=== PATIENT | female | born 1995 | race Caucasian/White ===

== ENCOUNTER → 2020-07-06 | Outpatient (CLI) | payer BC ==
[~2020-07-06] MED LIST: BUPR300T92 PO; CELE10TA PO
== END ==
LOC: M LABSMTC 10:16
PROVIDERS: ATTEND Anesthesiology
DX: Z01.812 Encounter for preprocedural laboratory examination (principal); Z20.822 Contact with and (suspected) exposure to COVID-19

== ENCOUNTER 2020-07-11 12:06 | Day surgery (SDC) | payer BC ==
[~2020-07-11] VITALS: Ht 165.1 cm; Wt 59.8 kg
[~2020-07-11 12:06] MED LIST changes: +LIDOCAINE 1% MDV 20ML VIAL SQ PRN; +LR 1,000 ML IV ONE; +dexameTHASONE 20MG/5ML VIAL (J1100 PER 1MG) IV ONE
[2020-07-11] MEDS ORDERED: OXYMETAZOLINE 0.05% NASAL SPRAY (AFRIN) As Ordered ONE (14:30)
[2020-07-11] MEDS ORDERED: dexameTHASONE 4 MG/ML 1ML VIAL (J1100 PER 1MG) As Ordered ONE (14:34)
[2020-07-11] MEDS ORDERED: LIDOCAINE 2% 100MG/5ML SDV (FOR ANES.) As Ordered ONE (14:34)
[2020-07-11] MEDS ORDERED: ROCURONIUM BROMIDE 50 MG/5 ML VIAL As Ordered ONE (14:34)
[2020-07-11] MEDS ORDERED: ONDANSETRON 4MG/2ML VIAL As Ordered ONE (14:34)
[2020-07-11] MEDS ORDERED: propofoL 200 MG/20 ML VIAL As Ordered ONE (14:34)
[2020-07-11] MEDS ORDERED: MIDAZOLAM INJ 2MG/2ML VIAL (J2250 PER 1MG) As Ordered ONE (14:37)
[2020-07-11] MEDS ORDERED: fentaNYL 100 MCG/2 ML INJECTION (J3010) As Ordered ONE ×2 (14:38→15:58)
[2020-07-11] MEDS ORDERED: ACETAMINOPHEN 1000MG 100ML IV BTL (OFIRMEV) (J0131 PER 10MG) As Ordered ONE (15:17)
[2020-07-11] MEDS ORDERED: SUGAMMADEX SODIUM 500 MG/5 ML VIAL (BRIDION) As Ordered ONE (15:17)
[2020-07-11] MEDS ORDERED: HYDROmorphone HCL 2 MG/ML 1ML VIAL (J1170) As Ordered ONE (15:18)
[2020-07-11] MEDS: fentaNYL 100 MCG/2 ML INJECTION (J3010) IV PRN ×2 (15:58→16:03)
[2020-07-11] MEDS ORDERED: ONDANSETRON 4MG/2ML VIAL IV PRN (16:35)
[2020-07-11] MEDS ORDERED: LR 1,000 ML IV SCH (16:35)
[2020-07-11] MEDS ORDERED: oxyCODONE 5MG TAB PO PRN (16:35)
[2020-07-11 17:25] VITALS: BP 127/74
--- NOTE | 2020-07-16 12:46 | RO ---
OPERATIVE NOTE DATE OF OPERATION: 07/11/2020 PREOPERATIVE DIAGNOSIS: Chronic tonsillitis. POSTOPERATIVE DIAGNOSIS: Chronic tonsillitis. PROCEDURE PERFORMED: Tonsillectomy. SURGEON: Gil Flaherty MD. THERAPEUTIC CONSULTANT: ANESTHESIA: General. CLINICAL PREAMBLE: This 24-year-old woman presented to the office with history of chronic tonsillitis. Physical examination revealed cryptic tonsils. Management options, including surgery listed above, have been discussed. The patient understood and consented to the procedure. DESCRIPTION OF PROCEDURE: Patient was identified in preoperative holding and brought to the operating room in stable condition. In supine position on the operating table, patient received general anesthesia followed by orotracheal intubation without incident. Patient was prepped and draped in the usual fashion for the procedure. The Neel-Nando mouth gag was inserted and suspended. The right tonsil was medialized using curved Allis forceps. Mucosal incision was made over the superior pole of the right tonsil using the Coblator wand set at 7 for Coblation. The tonsillar capsule was identified, and dissection was carried out along the plane to excise the right tonsil. The left tonsil was then similarly dissected out. At the end of the procedure, both tonsil beds were free of bleeding. Estimated blood loss was less than 10 mL. No complication was encountered. Sponge and instrument counts were correct at the end of the procedure. General anesthesia was reversed, and the patient was extubated and brought to the recovery room in stable condition.
== END 2020-07-11 17:25 | disposition home or self-care (01) ==
LOC: M SDC 12:06
PROVIDERS: ATTEND Otolaryngology
DX: J35.01 Chronic tonsillitis (principal); I45.6 Pre-excitation syndrome; T88.59XD Other complications of anesthesia, subsequent encounter; Z86.14 Personal history of Methicillin resistant Staphylococcus aureus infection; Z88.9 Allergy status to unspecified drugs, medicaments and biological substances; Z79.899 Other long term (current) drug therapy
CPT/HCPCS: 42826; 81025; 88302; J0131; J1100; J1170; J2250; J2405; J3010

== ENCOUNTER → 2020-09-10 | Outpatient (REF) | payer BC ==
[~2020-09-10] MED LIST changes: -LIDOCAINE 1% MDV 20ML VIAL SQ PRN; -LR 1,000 ML IV ONE; -dexameTHASONE 20MG/5ML VIAL (J1100 PER 1MG) IV ONE
== END ==
LOC: M PLALAB 14:14
PROVIDERS: ATTEND Advanced Practice Midwife
DX: Z34.81 Encounter for supervision of other normal pregnancy, first trimester (principal)

== ENCOUNTER → 2020-09-25 | Outpatient (CLI) | payer BC | LOC: M LABSMTC 13:40 | PROVIDERS: ATTEND Anesthesiology | DX: Z01.818 Encounter for other preprocedural examination (principal); Z11.52 Encounter for screening for COVID-19 ==

== ENCOUNTER 2020-09-26 10:07 | Day surgery (SDC) | payer BC ==
[~2020-09-26] VITALS: Ht 165.1 cm; Wt 62.1 kg
[~2020-09-26 10:07] MED LIST changes: +DOXYCYCLINE HYCLATE 100 MG in D5W MINI-BAG PLUS 100 ML IV ONE; +LR 1,000 ML IV SCH
[2020-09-26] MEDS ORDERED: KETOROLAC 60MG 2ML VIAL As Ordered ONE (10:20)
[2020-09-26 10:40] LABS: HEMOGLOBIN 13.4 g/dl (12.0-15.5); MEAN CORPUSCULAR HEMOGLOBIN 30.1 pg (27.0-33.0); MEAN CORPUSCULAR HGB CONC 33.5 g/dl (32.0-36.5); MEAN CORPUSCULAR VOLUME 89.9 fl (80.0-96.0); PLATELET COUNT, AUTOMATED 267 10^3/uL (150-450); RED BLOOD COUNT 4.45 10^6/uL (4.00-5.40); WHITE BLOOD COUNT 9.7 10^3/uL (4.0-10.0)
[2020-09-26] MEDS ORDERED: ONDANSETRON 4MG/2ML VIAL As Ordered ONE (10:49)
[2020-09-26] MEDS ORDERED: MIDAZOLAM INJ 2MG/2ML VIAL (J2250 PER 1MG) As Ordered ONE (10:49)
[2020-09-26] MEDS ORDERED: dexameTHASONE 4 MG/ML 1ML VIAL (J1100 PER 1MG) As Ordered ONE (10:49)
[2020-09-26] MEDS ORDERED: fentaNYL 100 MCG/2 ML INJECTION (J3010) As Ordered ONE (10:49)
[2020-09-26] MEDS ORDERED: LIDOCAINE 2% 100MG/5ML SDV (FOR ANES.) As Ordered ONE (10:49)
[2020-09-26] MEDS ORDERED: propofoL 200 MG/20 ML VIAL As Ordered ONE ×2 (10:49→11:11)
[2020-09-26] MEDS ORDERED: LR 1,000 ML IV ONE (10:50)
[2020-09-26] MEDS ORDERED: SCOPOLAMINE 1MG TRANSDERMAL PATCH TOP ONE (10:50)
[2020-09-26] MEDS ORDERED: ACETAMINOPHEN 1000MG 100ML IV BTL (OFIRMEV) (J0131 PER 10MG) As Ordered ONE (11:22)
[2020-09-26] MEDS ORDERED: METHYLERGONOVINE MALEATE 0.2 MG/ML VIAL (J2210) As Ordered ONE (11:25)
[2020-09-26] MEDS ORDERED: SILVER NITRATE APPLICATOR As Ordered ONE (11:30)
--- NOTE | 2020-09-26 11:49 | ROOPDOC ---
[facility] Report Of Operation Report of Operation DATE OF PROCEDURE: 09/27/2019 PREPROCEDURE DIAGNOSES: First trimester miscarriage, missed . POSTPROCEDURE DIAGNOSES: Same. PROCEDURE: Suction D&C. SURGEON: Joselin Harry DO FACOG TIMBER SUPERVISOR: none ANESTHESIA: General via LMA ESTIMATED BLOOD LOSS: Approximately 800 mL. IV FLUIDS REPLACED: 500 mL LR UOP: in and out cath, 25 mL COMPLICATIONS: none. SPECIMENS: products of conception, intrauterine tissue. PREOPERATIVE / PROPHYLACTIC ANTIBIOTIC: Doxycycline 100mg IV x1. INTRAOPERATIVE FINDINGS/REMARKS:. Initially she had very brisk bleeding. Thus, the EBL. Bleeding was eventually controlled with continued curettage and suction, products of conception visualized grossly. She was given Methergine IM 0.2 mg 1 for control of bleeding and she responded well to this medication. Minimal bleeding from the os was noted at the conclusion of the procedure and her vitals were normal and stable.. She will receive an additional dose of Methergine 0.2 mg by mouth during her postoperative recovery. Uterus was retroverted, retroflexed, about 10 cm in longitudinal dimension/uterine sound done. DESCRIPTION OF PROCEDURE: The patient was counseled, consented on the risks, benefits, indications and alternatives procedure. Informed consent was obtained. She was taken to the operating room with an IV running and placed on the operating table in dorsal supine position. Gen. anesthesia was administered and the airway was secured without any difficulty. She was prepared and draped in the normal sterile fashion. She was placed in the high lithotomy position. A time out was performed per protocol. The bladder was drained with a sterile in and out catheter. Sterile speculum was placed with good visualization of the cervix. The cervix was grasped with a single-tooth tenaculum at the anterior lip and downward traction was applied. The cervix was sequentially dilated with Maninder dilators up to a #20. A size 9 curved Vacurette was placed trans-cervically into the intrauterine cavity. Suction was activated. Tissue and blood return was consistent with products of conception. After removal of the Vacurette, a sharp curettage was performed with minimal tissue and blood return. Minimal bleeding from the cervical os was noted. The patient's vitals were normal and stable. The decision was made to conclude the procedure. Single-tooth tenaculum was removed from the cervix and the tenaculum sites were noted to be hemostatic. Again, minimal bleeding from the cervical os was noted. All instruments were removed from the vagina. Sponge and instrument counts were correct per protocol. The patient was transferred to the PACU in good and stable condition. Joselin Harry DO FACOG. JOSELIN HARRY DO Sep 26, 2020 11:49
[2020-09-26] MEDS ORDERED: oxyCODONE 5MG TAB PO PRN (12:00)
[2020-09-26] MEDS ORDERED: LR 1,000 ML IV SCH ×2 (12:00)
[2020-09-26] MEDS ORDERED: fentaNYL 100 MCG/2 ML INJECTION (J3010) IV PRN (12:00)
[2020-09-26] MEDS ORDERED: ONDANSETRON 4MG/2ML VIAL IV PRN (12:00)
[2020-09-26] MEDS ORDERED: HYDROMORPHONE HCL 0.5 MG/ 0.5 ML SYRINGE (J1170 PER 1) IV PRN (12:00)
[2020-09-26] MEDS ORDERED: METHYLERGONOVINE MALEATE 0.2 MG TAB PO ONE (12:30)
[2020-09-26] MEDS ORDERED: DOXYCYCLINE HYCLATE 100MG TABLET PO ONE (13:00)
[2020-09-26 13:15] VITALS: BP 116/68
== END 2020-09-26 13:25 | disposition home or self-care (01) ==
LOC: M SDC 10:07
PROVIDERS: ATTEND Obstetrics & Gynecology
DX: O02.1 Missed abortion (principal)
CPT/HCPCS: 36415; 59820; 85027; 86850; 86900; 86901; 88305; J0131; J1100; J1885; J2210; J2250; J2405; J3010; U0002

== ENCOUNTER → 2024-03-03 | Outpatient (REF) | payer BC, OTHER ==
[~2024-03-03] MED LIST changes: +BUPR-597 PO; -BUPR300T92 PO; -DOXYCYCLINE HYCLATE 100 MG in D5W MINI-BAG PLUS 100 ML IV ONE; -LR 1,000 ML IV SCH
[2024-03-08 13:57] LABS: HPV APTIMA Not Detected (Not Detected)
== END ==
LOC: M SFHCWAGY 13:02
PROVIDERS: ATTEND Obstetrics & Gynecology
DX: Z01.419 Encounter for gynecological examination (general) (routine) without abnormal findings (principal); Z12.4 Encounter for screening for malignant neoplasm of cervix; Z77.9 Other contact with and (suspected) exposures hazardous to health

== ENCOUNTER → 2024-05-10 | Outpatient (CLI) | payer OTHER ==
[2024-05-10 13:48] LABS: HEMATOCRIT 35.9 % (36.0-47.0); HEMOGLOBIN 12.4 g/dl (12.0-15.5); MEAN CORPUSCULAR HEMOGLOBIN 30.4 pg (27.0-33.0); MEAN CORPUSCULAR HGB CONC 34.5 g/dl (32.0-36.5); PLATELET COUNT, AUTOMATED 240 10^3/uL (150-450); RED BLOOD COUNT 4.08 10^6/uL (4.00-5.40); WHITE BLOOD COUNT 11.2 10^3/uL (4.0-10.0)
[2024-05-10 14:47] LABS: HIV 1&2 SCREEN NEGATIVE (NEGATIVE)
[2024-05-10 14:55] LABS: HEPATITIS C VIRUS ABY INDEX < 0.02 INDEX (<0.8)
[2024-05-10 16:49] LABS: GC DNA AMPLIFICATION NEGATIVE (NEGATIVE)
== END ==
LOC: M PLALAB 11:31
PROVIDERS: ATTEND Obstetrics & Gynecology
DX: Z34.81 Encounter for supervision of other normal pregnancy, first trimester (principal)

== ENCOUNTER → 2024-05-10 | Outpatient (REF) | payer OTHER | LOC: M PLALAB 11:09 | PROVIDERS: ATTEND Obstetrics & Gynecology | DX: Z34.81 Encounter for supervision of other normal pregnancy, first trimester (principal) ==

== ENCOUNTER → 2024-06-22 | Outpatient (CLI) | payer OTHER | LOC: M RAD 10:49 | PROVIDERS: ATTEND Obstetrics & Gynecology | DX: Z34.92 Encounter for supervision of normal pregnancy, unspecified, second trimester (principal) ==

== ENCOUNTER → 2024-08-03 | Outpatient (CLI) | payer OTHER | LOC: M WHC 08:56 | PROVIDERS: ATTEND Obstetrics & Gynecology | DX: Z34.80 Encounter for supervision of other normal pregnancy, unspecified trimester (principal) ==

== ENCOUNTER → 2024-09-07 | Outpatient (CLI) | payer OTHER ==
[~2024-09-07] MED LIST changes: -BUPR-597 PO; +BUPR-766 PO
[2024-09-07 14:46] LABS: GLUCOSE CHALLENGE TEST 1 HOUR 106 MG/DL (LESS THAN 140)
[2024-09-07 14:47] LABS: HEMATOCRIT 34.5 % (36.0-47.0); HEMOGLOBIN 11.1 g/dl (12.0-15.5); MEAN CORPUSCULAR HEMOGLOBIN 30.2 pg (27.0-33.0); MEAN CORPUSCULAR HGB CONC 32.2 g/dl (32.0-36.5); PLATELET COUNT, AUTOMATED 218 10^3/uL (150-450); RED BLOOD COUNT 3.67 10^6/uL (4.00-5.40); WHITE BLOOD COUNT 10.7 10^3/uL (4.0-10.0)
[2024-09-07 15:10] LABS: Trichomonas vaginalis (AMP) NOT DETECTED (NEGATIVE)
[2024-09-07 15:19] LABS: HIV 1&2 SCREEN NEGATIVE (NEGATIVE)
[2024-09-07 15:27] LABS: HEPATITIS C VIRUS ABY INDEX 0.06 INDEX (<0.8)
[2024-09-07 15:33] LABS: GC DNA AMPLIFICATION NEGATIVE (NEGATIVE)
== END ==
LOC: M PLALAB 10:32
PROVIDERS: ATTEND Obstetrics & Gynecology
DX: Z34.92 Encounter for supervision of normal pregnancy, unspecified, second trimester (principal)